=== PATIENT | female | born 1985 ===

== ENCOUNTER 2017-06-06 16:47 | Emergency (ER) | payer MEDICAID, OTHER ==
[~2017-06-06] VITALS: Ht 160 cm; Wt 86.3 kg
[~2017-06-06 16:47] MED LIST: ASCO250T6 PO; FES300 PO; PREN1TAB47 PO; ZOL50 PO
[2017-06-06 16:55] VITALS: BP 130/87; PULSE 80; RESP 16; O2SAT 98
--- NOTE | 2017-06-06 17:26 | ED.REPORT ---
HPI-Rash / Abscess Date of Service Jun 06, 2017 ED Provider: History of Present Illness: 32-year-old female here for a bee sting between her fourth and fifth digits of her left hand. Happened About an hour and a half [employer]. There is swelling in between these fingers. No previous history of bee sting. No shortness of breath or chest pain. She has taken 25 mg of Benadryl. Nursing Notes Stated Complaint: BEE STING Chief Complaint: General Complaint Nursing Notes Reviewed: Yes Allergies: Coded Allergies: No Known Allergies (Verified , 11/29/09) Scheduled Ascorbic Acid-Expunged Drug, Do Not Renew! (Vitamin C-Expunged Drug, Do Not Renew!) 250 Mg Tablet 250 MG PO BID Ferrous Sulfate-Expunged Drug, Do Not Renew! (Feosol-Expunged Drug, Do Not Renew !) 325 Mg Tablet 1 PO BID Vit/Fe Fumarate/Fa-Expunged Drug, Do (-Expunged Drug, Do Not Renew!) 1 Tab Tablet 1 PO DAILY Sertraline-Expunged Drug, Choose New Med! (Sertraline-Expunged Drug, Choose New Med!) 50 Mg Tab 50 MG PO HS General Time Seen by MD: 17:22 Chief Complaint Rash, Red area Hx Obtained From: Patient Arrived By: Walk-in Onset Occurred: Just prior to arrival Symptom Duration: Since onset Location: : Hand Quality: Sharp Severity: Current: Moderate Severity: Maximum: Moderate Pertinent Negative: Pt denies other symptoms Recent Healthcare: No recent doctor visit Similar Sx Previous: No Past Medical History Past Medical History Notes: denies Review of Systems Constitutional: Denies: Fever Skin: Reports Rash Complete sys rev & neg: except as marked. Physical Exam Initial Vital Signs Vital Signs (First) Date Time Temp Pulse Resp B/P Pulse Ox O2 Delivery O2 Flow Rate FiO2 06/06/17 16:55 37.1 80 16 130/87 98 Room Air Initial VS: Reviewed, Vital signs normal Head / Eyes: Atraumatic, Normocephalic, PERRL ENT: Mucous membranes moist, Conjunctiva normal, No scleral icterus Respiratory: Breath sounds normal, Clear to auscultation, No respiratory distress Cardiovascular: Regular rate & rhythm, Heart sounds normal, Intact distal pulses Neurologic: Alert, Oriented, Nonfocal Psychiatric: Mood/affect normal, Behavior normal, Normal thought content Rash / Lesion Notes: Small amount of light erythema between fourth and fifth digits at the base on the right hand. Slightly tender to touch. No visible stinger noted Discharge & Departure Shift Change Sign-Out Procedures: Results discussed Response to Therapy: Improved Impression: Primary Impression: Bee sting Encounter type: initial encounter Injury intent: undetermined intent Qualified Code: T63.444A - Toxic effect of venom of bees, undetermined, initial encounter Disposition: Home Discharge Condition All VS Reviewed: Yes Condition: Stable Patient Instructions: Insect Bite or Sting (ED) Additional Instructions: Take Benadryl for inflammation. 25-50 mg 3 times a day as needed., Apply ice for itching and pain as well. Return or see her PCP if pain increases or he get fevers. EDSupervising Provider for APC: Sunny Cano Linnea K ARNP Jun 06, 2017 17:26
[2017-06-06 18:29] VITALS: BP 111/79; PULSE 72; RESP 16; O2SAT 99
== END 2017-06-06 18:34 | disposition home or self-care (01) ==
LOC: SED 16:47
DX: T63.444A Toxic effect of venom of bees, undetermined, initial encounter (principal); Y93.89 Activity, other specified; Y92.89 Other specified places as the place of occurrence of the external cause; Y99.8 Other external cause status